=== PATIENT | female | born 1985 | race Caucasian/White ===

== ENCOUNTER 2017-12-07 22:20 | Emergency (ER) | payer SELFPAY ==
--- NOTE | 2017-12-07 22:26 | DI.RAD.S_ITS ---
PROCEDURE: XR ACUTE ABDOMEN SERIES INDICATIONS: Abdominal pain TECHNIQUE: One view chest and two views of the abdomen were acquired. COMPARISON: [facility], US, ABDOMEN LIMITED, 02/03/2011, 0:37. [facility], CT, ABDOMEN/PELVIS WITH CONTRAST, 02/03/2011, 1:21. FINDINGS: Surgical changes and devices: None. Chest: Lungs are clear. Heart size is normal. No pleural effusions. No pneumoperitoneum. Abdomen: Bowel gas pattern is normal. No suspicious calcifications. Visualized solid organ contours appear normal. Bones: No suspicious bony lesions. IMPRESSION: Unremarkable exam. No obstruction. Dictated by: Ashanti Ellison M.D. on 12/08/2017 at 8:33 Approved by: Ashanti Ellison M.D. on 12/08/2017 at 8:33
[2017-12-07 22:34] VITALS: BP 140/90; PULSE 85; RESP 18; TEMP 37.3; O2SAT 96
[2017-12-07 22:39] VITALS: BP 140/90; PULSE 85; RESP 18; TEMP 37.3; O2SAT 96
[2017-12-07 22:50] LABS: Bacteria Urine None Seen; RBC Urine None Seen (0-5/HPF)
[2017-12-07 23:03] LABS: Add Manual Diff / Slide Review NO; Basophils Percent Auto 0.3 % (0-2); Eosinophils Percent Auto 2.8 % (2-4); Hematocrit 40.1 % (36-46); Hemoglobin 13.6 g/dL (12.0-16.0); Lymphocytes Percent Auto 13.8 % (25-40); Mean Corpuscular HGB Conc 33.8 % (30-36); Mean Corpuscular Hemoglobin 30.9 PG (26-34); Mean Corpuscular Volume 91.3 fL (80-100); Monocytes Percent Auto 5.5 % (3-14); Neutrophils Absolute Auto 10900 /uL (3000-5900); Neutrophils Percent Auto 77.6 % (50-75); Platelet Count 253 X10^3/uL (150-400); Red Blood Cell Count 4.39 X10^6/uL (4.0-5.2); Red Cell Distribution Width 13.6 % (11.6-14.8)
[2017-12-07 23:04] LABS: Culture Indicated Urine Specimen Cultured; Squamous Epithelial Cell Urine 0-1 /HPF; WBC Urine 0-1/HPF (0-5/HPF)
[2017-12-07] MEDS: SODIUM CHLORIDE 0.9% 1,000 ML 150 ML IV (23:09)
[2017-12-07 23:17] LABS: Alanine Aminotransferase 44 IU/L (9-52); Albumin 4.2 g/dL (3.5-5.0); Albumin Globulin Ratio 1.4 (1.0-2.8); Alkaline Phosphatase 117 U/L (38-126); Aspartate Aminotransferase 24 IU/L (14-36); Bilirubin Total 0.5 mg/dL (0.2-1.3); Blood Urea Nitrogen 10 mg/dL (7-17); Calcium 9.1 mg/dL (8.4-10.2); Carbon Dioxide 25 mmol/L (22-32); Chloride 104 mmol/L (98-107); Estimated Glomerular Filt Rate > 60.0 mL/min (>60); Glucose 114 mg/dL (70-100); HEMOLYSIS < 15 (0-50); Lipase 41 U/L (23-300); Potassium 4.2 mmol/L (3.4-5.1); Sodium 139 mmol/L (137-145); Total Protein 7.2 g/dL (6.3-8.2)
--- NOTE | 2017-12-07 23:53 | ED.ABDPAIN ---
HPI - Abdominal Pain General Chief Complaint: Abdominal Pain Stated Complaint: Abdominal Pain Time Seen by Provider: 12/07/17 22:26 Source: patient and family Mode of arrival: ambulatory Limitations: no limitations History of Present Illness HPI narrative: 32-year-old female with history of Crohn's presents to the emergency department from air medical transport out on the [facility]. Over the course of the day she has had sudden-onset severe left back pain with radiation around to her groin. She denies any provocation or palliation of her discomfort. By the time she arrived here her pain was gone. She denies associated fever or chills but has had nausea and vomiting. She does admit to being very ?gassy ?lately but deniesconstipation she frequently has diarrhea as a consequence of her Crohn's MD complaint: abdominal pain and flank pain Onset (ago): hour(s) Pain Consistency: intermittent, now resolved and colicky Location: L flank Severity: severe Severity scale (1-10): 10 Quality: stabbing and sharp Relieving factors: nothing Exacerbating factors: nothing Associated symptoms: nausea, vomiting and diarrhea Related Data Home Medications Medication Instructions Recorded Confirmed ibuprofen [Advil] 200 mg PO PRN #0 09/22/11 12/07/17 Allergies Allergy/AdvReac Type Severity Reaction Status Date / Time metformin [METFORMIN] Allergy Intermediate diarrhea Verified 12/08/17 01:22 Review of Systems Review of Systems All systems reviewed & are unremarkable except as noted in HPI and below Constitutional Denies chills, Denies fever(s), Denies lethargy and Denies weakness Eyes Denies change in vision, Denies eye discharge, Denies irritation and Denies loss of vision ENT Ears, Nose, Mouth, and Throat: Denies change in voice, Denies neck pain and Denies sore throat Cardiovascular Denies chest pain, Denies irregular heart rhythm, Denies lightheadedness, Denies palpitations, Denies dyspnea, Denies dyspnea on exertion and Denies orthopnea Respiratory Denies cough, Denies dyspnea, Denies dyspnea on exertion and Denies wheezing Gastrointestinal Gastrointestinal: Reports abdominal pain, Denies change in bowel habits, Reports diarrhea, Reports nausea and Reports vomiting Genitourinary Denies hematuria, Denies flank pain, Denies urinary incontinence and Denies urinary urgency Musculoskeletal Denies neck pain Integumentary/Breasts Denies pruritus, Denies erythema, Denies rash and Denies wounds Neurologic Denies confusion, Denies loss of vision and Denies weakness Psychiatric Denies anxiety, Denies confusion, Denies depression, Denies homicidal ideation and Denies suicidal ideation Endocrine Denies palpitations Hematologic/Lymphatic Denies easy bruising Allergic/Immunologic Denies wheezing PFSH Medical History PCOS (polycystic ovarian syndrome) (Acute) Ulcerative colitis (Acute) Surgical History Status post colonoscopy Status post endoscopy Exam Initial Vital Signs Initial Vital Signs: Vital Signs Temperature 99.2 F 12/07/17 22:34 Pulse Rate 85 12/07/17 22:34 Respiratory Rate 18 12/07/17 22:34 Blood Pressure 140/90 H 12/07/17 22:34 Pulse Oximetry 96 12/07/17 22:34 Const General: cooperative and well developed Nutritional Appearance: well nourished Orientation: alert, awake, oriented x3 and not confused HENMT Head: normocephalic and atraumatic Ears: external ears normal and TM's normal bilaterally Nose: external nose normal and No nasal discharge Face and sinus: sinuses nontender, face symmetric, no sinus tenderness and No dry mucous membranes Mouth: oral mucosae normal and moist mucous membranes Teeth and gingiva: dentition normal Throat: tonsils normal and uvula midline Eyes General: appearance normal, both eyes and all related structures Eyelids: eyelids normal Conjunctivae: conjunctivae normal Sclera: sclerae normal Pupils: PERRL EOM: EOM intact bilaterally Neck Neck: normal visual inspection, trachea midline, No lymphadenopathy, No midline deformity and No JVD Lymphatic: No lymphedema Chest Chest: normal inspection of the chest Resp Effort & Inspection: normal respiratory effort, able to speak in complete sentences, no respiratory distress and no use of accessory muscles Auscultation: clear to auscultation bilaterally, no rales, no rhonchi and no wheezes Cardio Rate: regular rate Rhythm: regular rhythm Heart Sounds: no click, no gallops, no murmurs and no rubs Pulses: normal peripheral pulses GI Inspection: non-distended Palpation: soft, no hepatosplenomegaly, No guarding, No pulsatile mass and No tender Auscultation: normal bowel sounds Back/Spine/Pelvis Back: No CVA tenderness Cervical Spine: cervical ROM normal and No pain with cervical ROM Thoracic/Lumbar Spine: thoracic and lumbar spine normal to inspection Skin General: no rashes or lesions noted, No jaundice and No petechiae Neuro General: alert, oriented x3, gait normal and no focal motor deficits Speech: speech normal Extrem General: full ROM, no clubbing, cyanosis or edema, no pedal edema and no calf tenderness Psych Appearance: well kempt Mental Status: mental status grossly normal Attitude: cooperative Thought Content: normal and suicidality Judgment: judgment good Course Orders Ordered: ED Orders 12/07/17 22:26 XR acute abdomen series Stat 12/07/17 22:41 Urine Culture Stat Urine Microscopic Stat 12/07/17 22:50 Comprehensive Metabolic Panel Stat Lipase Stat 12/07/17 22:55 Complete Blood Count AUTO DIFF Stat Discontinued Medications Sodium Chloride (Normal Saline 0.9%) 1,000 mls @ 150 mls/hr IV CONT SAM Last Infusion: 12/08/17 01:22 Dose: 0 mls/hr Admin: 12/07/17 23:09 Dose: 150 mls/hr Vital Signs - 8 hr 12/07/17 22:34 12/07/17 22:39 12/08/17 00:46 Temperature 99.2 F 99.2 F 97.9 F Pulse Rate 85 85 81 Respiratory Rate 18 18 18 Blood Pressure 140/90 H 140/90 H Blood Pressure [Left Arm] 111/72 Pulse Oximetry 96 96 99 MDM - Abdominal Pain Lab Data Result diagrams: 12/07/17 22:55 12/07/17 22:50 Lab Results 12/07/17 12/07/17 12/07/17 Range/Units 22:41 22:50 22:55 WBC 14.0 H (4.5-11.0) X10^3/uL RBC 4.39 (4.0-5.2) X10^6/uL Hgb 13.6 (12.0-16.0) g/dL Hct 40.1 (36-46) % MCV 91.3 (80-100) fL MCH 30.9 (26-34) PG MCHC 33.8 (30-36) % RDW 13.6 (11.6-14.8) % Plt Count 253 (150-400) X10^3/uL Neut % (Auto) 77.6 H (50-75) % Lymph % (Auto) 13.8 L (25-40) % [place] % (Auto) 5.5 (3-14) % Eos % (Auto) 2.8 (2-4) % Baso % (Auto) 0.3 (0-2) % Neut # (Auto) 27139 H (5890-2397) /uL Sodium 139 (137-145) mmol/L Potassium 4.2 (3.4-5.1) mmol/L Chloride 104 (98-107) mmol/L Carbon Dioxide 25 (22-32) mmol/L BUN 10 (7-17) mg/dL Creatinine 0.50 L (0.52-1.04) mg/dL Estimated GFR > 60.0 (>60) mL/min BUN/Creatinine Ratio 20.0 (6-22) Glucose 114 H (70-100) mg/dL Calcium 9.1 (8.4-10.2) mg/dL Total Bilirubin 0.5 (0.2-1.3) mg/dL AST 24 (14-36) IU/L ALT 44 (9-52) IU/L Alkaline Phosphatase 117 (38-126) U/L Total Protein 7.2 (6.3-8.2) g/dL Albumin 4.2 (3.5-5.0) g/dL Globulin 3.0 (1.7-4.1) g/dL Albumin/Globulin Ratio 1.4 (1.0-2.8) Lipase 41 (23-300) U/L Urine RBC None seen (0-5/HPF) Urine WBC 0-1/hpf (0-5/HPF) Ur Squamous Epith Cells 0-1 /hpf Urine Bacteria None seen (None) Ur Culture Indicated? Specimen cultured Micro UA Comment Not Reportable Point of care testing: Point of Care Testing Test Results Negative Urine Dip Bedside Urine Glucose Negative Bedside Urine Bilirubin - Negative Bedside Urine Ketone - Negative Urine Specific [place] 1.015 Bedside Urine Occult Blood - Negative Bedside Urine pH 8.0 Bedside Urine Protein - Negative Bedside Urine Urobilinogen - Negative Bedside Urine Nitrite - Negative Bedside Urine Leukocytes +++ 500 Esterase MDM Narrative Medical decision making narrative: Patient with history of Crohn's presents with nausea, vomiting and back pain that radiated around flank to groin. She could find no position of comfort when the pain was quite bad. Pain was sudden onset and stopped nearly as quickly as it started. This raises the question of the possibility of a kidney stone, though patient has no history. Additionally the colicky nature of her pain and the presence notable gas on x-ray suggests this could be the etiology of her discomfort as well or perhaps both. Patient was nearly completely asymptomatic for the duration of her visit Discharge Plan Departure Patient Disposition: Home, Self-Care Clinical Impression: Abdominal pain Discharge Date/Time: 12/08/17 01:20 Interventions: ED Discharge Assessment Last Done: 12/08/17 01:20 Instructions: DI for Abdominal Pain-Adult Activity Restrictions/Additional Instructions: *You have been diagnosed with [ abdominal pain, resolved ] *What to do: *Take medications as directed *Follow up with your primary care provider in 2-3 days, call for an appointment. Let them know you were seen in the Emergency Department and that we ask that you be seen in follow up *Return to ER if you should have any new, worsening or concerning symptoms, such as [ increasing pain, fever or chills or other bothersome symptoms] Prescriptions: No Action ibuprofen [Advil] 200 MG tablet 200 mg PO PRN Qty: 0 RF: 0 Referrals: Roel Del Valle MD [Family Provider] -
[2017-12-08 00:46] VITALS: BP 111/72; PULSE 81; RESP 18; TEMP 36.6; O2SAT 99
== END 2017-12-08 01:20 | disposition home or self-care (01) ==
PROVIDERS: Emergency Provider Emergency Medicine; Family Provider Family Medicine
DX: R10.9 Unspecified abdominal pain (principal)
CPT/HCPCS: 36415; 74022; 80053; 81003; 81015; 81025; 83690; 85025; 87086; 96360; 96361; 99283; 99284

== ENCOUNTER 2022-09-07 11:11 | Emergency (ER) | payer OTHER, MEDICAID, SELFPAY ==
[2022-09-07 11:20] VITALS: BP 149/86; PULSE 71; RESP 16; TEMP 36.9; O2SAT 97; BMI 39.9
[2022-09-07 11:57] LABS: Bacteria Urine None Seen; Culture Indicated Urine Specimen Cultured; RBC Urine None Seen (0-5/HPF); WBC Urine 1-5/HPF (0-5/HPF)
--- NOTE | 2022-09-07 13:10 | ED_ITS ---
HPI - Female Genitourinary <Art Hill PA-C - Last Filed: 09/07/22 18:01> General Chief complaint: Urogenital-Female Stated complaint: blood in urine sent by [place] Time Seen by Provider: 09/07/22 12:43 Source: patient Mode of arrival: Ambulatory History of Present Illness HPI Narrative: This is a 37-year-old female presents emergency department due to right flank pain for last couple of days. States that this she has had recurrent pain with 2 episodes prior to this since last February, 6 months ago. Patient states that she was diagnosed with a right kidney stone by ultrasound prior to that. States she is never passed in has noticed repeat episodes of the pain. Also reports mild nausea. Repeats blood in the urine. Denies any dysuria, urinary frequency, foul odor, or any other concerning signs or symptoms. Related Data Home Medications Medication Instructions Recorded Confirmed ibuprofen 200 mg tablet (Advil) 200 mg PO PRN ##0 09/22/11 08/31/21 Allergies Allergy/AdvReac Type Severity Reaction Status Date / Time metformin [METFORMIN] Allergy Intermediate diarrhea Verified 08/31/21 08:04 Review of Systems <Art Hill PA-C - Last Filed: 09/07/22 18:01> Review of Systems Narrative: GENERAL: Denies chills, fatigue, malaise, fever, sweats. HEENT: Denies sinus pain, ear pain, sore throat, difficulty swallowing, dizziness. RESPIRATORY: Denies dyspnea, cough, wheezing, hemoptysis, sputum. CARDIOVASCULAR: Denies chest pain, palpitations, orthopnea, edema, GASTROINTESTINAL: Reports nausea, denies vomiting, abdominal pain, diarrhea, constipation, melena. : Reports hematuria and right flank pain, Denies dysuria, frequency, incontinence, , urinary retention. MUSCULOSKELETAL: denies weakness, joint pain, or bony pain SKIN: Denies rash, skin lesions, or other NEUROLOGIC: Denies weakness, headache, numbness, change in speech, confusion, seizures, incoordination. PSYCHIATRIC: No concerning psychosocial issues. 12 point review of systems is negative except for those stated above Patient History <Art Hill PA-C - Last Filed: 09/07/22 18:01> Medical History (Updated 09/07/22 @ 14:30 by Art Hill PA-C) PCOS (polycystic ovarian syndrome) Ulcerative colitis Surgical History (Updated 09/18/17 @ 05:51 by Conversion Provider) Status post colonoscopy Status post endoscopy alcohol intake frequency: holidays/special occasions only Substance Use Type: marijuana Exam <Art Hill PA-C - Last Filed: 09/07/22 18:01> Narrative Exam Narrative: GENERAL: Well-developed patient, in mild distress. HEAD: Atraumatic. Normocephalic. EYES: Pupils equal round and reactive. Extraocular motions intact. No scleral icterus. No injection or drainage. ENT: Nose without bleeding, purulent drainage. Throat without erythema, tonsillar hypertrophy or exudate. Airway patent. NECK: Trachea midline. Non tender CARDIOVASCULAR: Regular rate and rhythm without murmurs, gallops, or rubs. RESPIRATORY: Clear to auscultation. Breath sounds equal bilaterally. No wheezes, rales, or rhonchi. GASTROINTESTINAL: Abdomen soft, non-tender, nondistended. EXTREMITIES: No edema or joint tenderness. BACK: Right CVA tenderness NEURO: AOx3. SKIN: No rash or erythema of visible areas Initial Vital Signs Initial Vital Signs: Vital Signs Temperature 98.5 F 09/07/22 11:20 Pulse Rate 71 09/07/22 11:20 Respiratory Rate 16 09/07/22 11:20 Blood Pressure 149/86 H 09/07/22 11:20 Pulse Oximetry 97 09/07/22 11:20 Oxygen Delivery Method Room Air 09/07/22 11:20 <Carlota Goddard DO - Last Filed: 09/07/22 20:01> Initial Vital Signs Initial Vital Signs: Vital Signs Temperature 98.5 F 09/07/22 11:20 Pulse Rate 71 09/07/22 11:20 Respiratory Rate 16 09/07/22 11:20 Blood Pressure 149/86 H 09/07/22 11:20 Pulse Oximetry 97 09/07/22 11:20 Oxygen Delivery Method Room Air 09/07/22 11:20 Course <Art Hill PA-C - Last Filed: 09/07/22 18:01> Orders Ordered: ED Orders 09/07/22 11:25 Urine Culture Stat Urine Microscopic Stat 09/07/22 13:18 CT kidney ureter bladder (KUB) Stat Discontinued Medications Ondansetron HCl (Ondansetron 4 Mg Odt) 4 mg SL NOW PRN PRN Reason: Nausea And Vomiting Ondansetron HCl (Ondansetron 4 Mg/2 Ml Inj) 4 mg IV NOW PRN PRN Reason: Nausea And Vomiting Vital Signs Vital signs: Vital Signs - 8 hr 09/07/22 14:41 Pulse Rate 68 Respiratory Rate 17 Blood Pressure 133/76 Pulse Oximetry 98 Oxygen Delivery Method Room Air <Carlota Goddard DO - Last Filed: 09/07/22 20:01> Orders Ordered: ED Orders 09/07/22 11:25 Urine Culture Stat Urine Microscopic Stat 09/07/22 13:18 CT kidney ureter bladder (KUB) Stat Discontinued Medications Ondansetron HCl (Ondansetron 4 Mg Odt) 4 mg SL NOW PRN PRN Reason: Nausea And Vomiting Ondansetron HCl (Ondansetron 4 Mg/2 Ml Inj) 4 mg IV NOW PRN PRN Reason: Nausea And Vomiting Vital Signs Vital signs: Vital Signs - 8 hr 09/07/22 14:41 Pulse Rate 68 Respiratory Rate 17 Blood Pressure 133/76 Pulse Oximetry 98 Oxygen Delivery Method Room Air MDM - Female Genitourinary <Art Hill PA-C - Last Filed: 09/07/22 18:01> Lab Data Labs: Lab Results 09/07/22 Range/Units 11:25 Urine RBC None seen (0-5/HPF) Urine WBC 1-5/hpf (0-5/HPF) Urine Bacteria None seen (None) Ur Culture Indicated? Specimen cultured Point of Care Testing Test Results Negative Urine Dip Bedside Urine Glucose Negative Bedside Urine Bilirubin - Negative Bedside Urine Ketone +/- 5 Urine Specific [place] 1.020 Bedside Urine Occult Blood +++ Bedside Urine pH 6.0 Bedside Urine Protein +/- 15 Bedside Urine Urobilinogen - Negative Bedside Urine Nitrite - Negative Bedside Urine Leukocytes - Negative Esterase Imaging Data CT scan - abdomen/pelvis: Radiologist's Impression: [address] [address] [address] Scan Report Signed Patient: Beena Hitchcock MR#: [id number] : 1985 Acct:[id number] Age/Sex: 37 / F Date of Service: 09/07/22 Loc: ED Accession Number: [id number] ?? Procedure: CT kidney ureter bladder (KUB) Ordering Provider: Art Hill P.A-C PROCEDURE:? CT KIDNEY URETER BLADDER (KUB) ? INDICATIONS:? R flank pain, hematuria ? TECHNIQUE:? Axial sections were acquired from the lung bases to the pubic symphysis.? Coronal and sagittal reformats were performed.? For radiation dose reduction, the following was used: ?automated exposure control, adjustment of mA and/or kV according to patient size.? ? COMPARISON:? [facility], CT, ABDOMEN/PELVIS WITH CONTRAST, 02/03/2011, 1:21. ? FINDINGS: Image quality:? Excellent.? ? Lung bases:? Lung bases are clear.? Heart size is normal. ? Solid organs:? Liver: The liver has no mass or intrahepatic biliary ductal dilatation.? 3.2 x 3.7 cm round low-density mass with a density of 32 Hounsfield units.? Biliary: The gallbladder has no gallstones, pericholecystic fluid, gallbladder wall thickening, or surrounding inflammatory change. Pancreas: The pancreas has no mass or ductal dilatation. There is no surrounding inflammation. Spleen: Normal size. There are no masses. Adrenals: No hypertrophy or nodules. Kidneys: No obstructive calculus or hydronephrosis.? No solid mass. No cystic mass. ? Peritoneum and bowel:? The distal esophagus and stomach are normal.? The small bowel has a normal caliber and appearance. The terminal ileum is normal. The large bowel has a normal caliber and appearance.? The appendix is normal. No free fluid or air.? Mesenteric adenopathy is similar to prior CT on 02/03/2011, however the lymph nodes are smaller.? For example a lymph node which measured 2.2 x 1.6 cm on the prior study adjacent to the gallbladder now measures 1.7 x 1.2 cm. ? Nodes and vessels:? No retroperitoneal or mesenteric adenopathy by size criteria.? Aorta and inferior vena cava are normal in size.? ? Miscellaneous:? No abdominal wall mass or hernia. ? PELVIS:? Genitourinary:? The bladder has no wall thickening or mass. No bladder calcifications. ? Bones:? No suspicious bony lesions.? No vertebral body compression fractures.? ? IMPRESSION: 1. No acute abnormality of the abdomen or pelvis. 2. Mesenteric adenopathy, also seen on a remote CT on 02/03/2011.? Overall lymph nodes are smaller compared to that prior CT. 3. 3.7 x 3.2 cm round mass in the liver not seen on the prior CT.? Liver protocol CT or MRI for further evaluation.? ? Dictated by: Valentin Green M.D. on 09/07/2022 at 13:45 ? ? Approved by: Valentin Green M.D. on 09/07/2022 at 13:58 ? MDM Narrative Medical decision making narrative: MDM * differential diagnosis includes but not limited to kidney stone, UTI, urethral injury, STD * Prior records reviewed: History of Crohn's. Last seen in 2018 due to severe left back pain radiating to the groin. Abdominal pain spontaneously resulted * My lab interpretation: Urine showed no evidence of infection, only hematuria. * My imgaing interpretation: 3.7 x 3.2 cm round mass of the liver. * Clinical Decision Rules/Scores evaluated: None * Independent discussions with: None ED Course: This is a 37-year-old female presents to the emergency department due to a repeat episode of hematuria for which she is experienced 3 episodes over the last 6 months. Her urinalysis showed no evidence of infection, negative for leukocytes or nitrites but will be sent for culture. Please treat appropriately if culture comes back positive. Recommended she follow up with her primary care provider for referral to Urology although she is already been referred for a cystoscopy to investigate the hematuria. The CT scan ordered to rule out kidney stone showed no kidney stones but did show a 3.7 x 3.2 cm round mass in the liver which the patient was unaware of. Discussed these findings with the patient and strongly recommended she follow up with the primary care provider for further testing and evaluation. Patient did not describe any vaginal symptoms and low concern for STD. Shared Decision Making: Discussed plan patient who is comfortable with the plan. Social Considerations: None Disposition: Discharged to home <Carlota Goddard, - Last Filed: 09/07/22 20:01> Lab Data Labs: Lab Results 09/07/22 Range/Units 11:25 Urine RBC None seen (0-5/HPF) Urine WBC 1-5/hpf (0-5/HPF) Urine Bacteria None seen (None) Ur Culture Indicated? Specimen cultured Point of Care Testing Test Results Negative Urine Dip Bedside Urine Glucose Negative Bedside Urine Bilirubin - Negative Bedside Urine Ketone +/- 5 Urine Specific [place] 1.020 Bedside Urine Occult Blood +++ Bedside Urine pH 6.0 Bedside Urine Protein +/- 15 Bedside Urine Urobilinogen - Negative Bedside Urine Nitrite - Negative Bedside Urine Leukocytes - Negative Esterase Discharge Plan Departure Patient Disposition: Home Clinical Impression: Liver mass, Hematuria Instructions: DI for Hematuria Activity Restrictions/Additional Instructions: Thank you for coming to the [facility] Emergency Department today. As discussed your CT scan was negative for any kidney stones but did show a liver mass I would very much recommend you follow-up with your primary care provider about. It sounds that you have already been referred to urology by your primary care provider for a cystoscopy which is the best way to investigate the cause of the hematuria you are experiencing. Please follow-up with them about this. Urine showed no evidence of infection but we have sent it to be cultured and will call you if it comes back positive and we need any kind of antibiotic t reatment. I hope you feel better soon. Prescriptions: No Action ibuprofen [Advil] 200 MG tablet 200 mg PO PRN Qty: 0 Referrals: Rika Lopez ARNP [Primary Care Provider] - Stand Alone Forms: Patient Portal/API <Carlota Goddard DO - Last Filed: 09/07/22 20:01> Cosign ED Attending Rosalindaature Attestation: I was immediately available in the department for consultation.
--- NOTE | 2022-09-07 13:18 | DI.CT.S_ITS ---
PROCEDURE: CT KIDNEY URETER BLADDER (KUB) INDICATIONS: R flank pain, hematuria TECHNIQUE: Axial sections were acquired from the lung bases to the pubic symphysis. Coronal and sagittal reformats were performed. For radiation dose reduction, the following was used: automated exposure control, adjustment of mA and/or kV according to patient size. COMPARISON: [facility], CT, ABDOMEN/PELVIS WITH CONTRAST, 02/03/2011, 1:21. FINDINGS: Image quality: Excellent. Lung bases: Lung bases are clear. Heart size is normal. Solid organs: Liver: The liver has no mass or intrahepatic biliary ductal dilatation. 3.2 x 3.7 cm round low-density mass with a density of 32 Hounsfield units. Biliary: The gallbladder has no gallstones, pericholecystic fluid, gallbladder wall thickening, or surrounding inflammatory change. Pancreas: The pancreas has no mass or ductal dilatation. There is no surrounding inflammation. Spleen: Normal size. There are no masses. Adrenals: No hypertrophy or nodules. Kidneys: No obstructive calculus or hydronephrosis. No solid mass. No cystic mass. Peritoneum and bowel: The distal esophagus and stomach are normal. The small bowel has a normal caliber and appearance. The terminal ileum is normal. The large bowel has a normal caliber and appearance. The appendix is normal. No free fluid or air. Mesenteric adenopathy is similar to prior CT on 02/03/2011, however the lymph nodes are smaller. For example a lymph node which measured 2.2 x 1.6 cm on the prior study adjacent to the gallbladder now measures 1.7 x 1.2 cm. Nodes and vessels: No retroperitoneal or mesenteric adenopathy by size criteria. Aorta and inferior vena cava are normal in size. Miscellaneous: No abdominal wall mass or hernia. PELVIS: Genitourinary: The bladder has no wall thickening or mass. No bladder calcifications. Bones: No suspicious bony lesions. No vertebral body compression fractures. IMPRESSION: 1. No acute abnormality of the abdomen or pelvis. 2. Mesenteric adenopathy, also seen on a remote CT on 02/03/2011. Overall lymph nodes are smaller compared to that prior CT. 3. 3.7 x 3.2 cm round mass in the liver not seen on the prior CT. Liver protocol CT or MRI for further evaluation. Dictated by: Valentin Green M.D. on 09/07/2022 at 13:45 Approved by: Valentin Green M.D. on 09/07/2022 at 13:58
[2022-09-07 14:41] VITALS: BP 133/76; PULSE 68; RESP 17; O2SAT 98
== END 2022-09-07 14:42 | disposition home or self-care (01) ==
PROVIDERS: Emergency Medicine; Emergency Provider Physician Assistant Medical; Family Provider Family Medicine; PCP Nurse Practitioner Family
DX: R31.9 Hematuria, unspecified (principal); R16.0 Hepatomegaly, not elsewhere classified
CPT/HCPCS: 74176; 81003; 81015; 81025; 87086; 99283; 99284

== ENCOUNTER → 2023-04-26 11:38 | Outpatient (CLI) | payer OTHER, MEDICAID, SELFPAY ==
--- NOTE | 2023-04-26 | DI.MRI.S_ITS ---
PROCEDURE: MR ABDOMEN LIVER PROTOCOL INDICATIONS: LIVER LESION TECHNIQUE: Coronal HASTE, axial 2D FLASH in- and [id number]; axial breath-hold T2 FSE. Dynamic axial VIBE during the administration of contrast; post-contrast coronal VIBE or 2D FLASH with fat saturation from the hepatic dome to the iliac crests. Optional diffusion weighted imaging and ADC may be performed. COMPARISON: [facility], CT, ABDOMEN/PELVIS WITH CONTRAST, 02/03/2011, 1:21. [facility], CT, CT ABDOMEN WITH/WITHOUT CONTRAST, 09/24/2022, 11:41. FINDINGS: Image quality: Diagnostic. Lung bases: No basal pleural effusions. Heart size is normal. Liver: Non cirrhotic liver morphology. In segment 6/7, there is a 3.0 centimeter T2 intermediate, T1 hypointense mass which demonstrates arterial enhancement, with a central washout appearance, and fading on the delayed sequences. No restricted diffusion is present. Gallbladder: Cholelithiasis without wall thickening or adjacent fat stranding to suggest acute cholecystitis. Biliary tree: No dilation. Pancreas: No ductal dilation. Spleen: Mild splenomegaly, measuring 10.4 x 4.6 x 12.0 centimeter (volume of 360 milliliter). Adrenal glands: No adrenal nodules. Kidneys: No hydronephrosis. No solid mass. No complex renal cyst which requires follow up, per consensus guidelines. Nodes and vessels: Prominent mesenteric lymph nodes, largest measuring 1.2 centimeter short axis in the right upper quadrant, decreased from prior. criteria. Aorta and inferior vena cava are normal in size. Bowel and peritoneum: Normal colonic caliber. No free fluid. Bones and soft tissues: No ventral hernias. Bone marrow is normal in overall signal. IMPRESSION: 3 centimeter mass within segment 6 of the liver which demonstrates indeterminate enhancement characteristics. Differential includes benign entities such as an atypical /sclerosing hemangioma, adenoma, less likely FNH or malignancy. This appears new since 2010. Consider MRI with Eovist to exclude a malignant etiology. Enlarged mesenteric lymph nodes, decreased since 2011, but with splenomegaly. Findings may indicate a lymphoproliferative disorder such as lymphoma. Dictated by: Rito Barnett M.D. on 04/26/2023 at 17:36 Approved by: Rito Barnett M.D. on 04/26/2023 at 17:44
== END ==
PROVIDERS: Family Provider Family Medicine; PCP Family Medicine; Referring Provider Internal Medicine Gastroenterology; Visit Provider Internal Medicine Gastroenterology
DX: K76.9 Liver disease, unspecified (principal); K80.20 Calculus of gallbladder without cholecystitis without obstruction; R16.1 Splenomegaly, not elsewhere classified; R59.0 Localized enlarged lymph nodes
CPT/HCPCS: 74183; A9579